=== PATIENT | male | born 1985 | race Caucasian/White ===

== ENCOUNTER 2020-04-04 15:15 | Emergency (ER) | payer OTHER, SELFPAY ==
[2020-04-04 15:22] VITALS: BP 146/98; PULSE 98; RESP 18; TEMP 37.2; O2SAT 97; BMI 29.8
--- NOTE | 2020-04-04 16:00 | ED_ITS ---
HPI - Back Pain/Injury General: Chief Complaint: Extremity Injury, Lower Stated Complaint: lower back pain Time Seen by Provider: 04/04/20 15:41 Source: patient Mode of arrival: ambulatory Limitations: no limitations History of Present Illness: HPI Narrative: Patient is a nice 35-year-old male who presents to ED today with a complaint of lower back pain. Patient tells me recently he was picking up a 6-year-old daughter when he began having left-sided back pain. Patient states he was adjusted by a chiropractor this morning who told him that most likely was his SI joint. Patient states he is not having numbness, tingling, or loss of sensation to his lower extremities. He is not experiencing urinary retention or bowel incontinence. He has not had any injury or trauma to his back. MD elicited complaint: back pain Onset (ago): hour(s) Timing: constant Severity: moderate Location: left lower back Radiation: none Exacerbating factors: movement, walking and other (bending over) Associated symptoms: Deny abdominal pain, difficulty walking, dysuria, fever(s), nausea, urinary urgency or vomiting Review of Systems Const: Denies: fever(s) or chills Card: Denies: chest pain Resp: Denies: dyspnea GI: Denies: abdominal pain, nausea or vomiting : Denies: flank pain, difficulty urinating, dysuria, urinary frequency, urinary urgency or urinary hesitancy Musc: Reports: back pain; Denies: neck pain, extremity pain, extremity swelling, joint pain or joint swelling Neuro: Denies: headache(s), numbness in extremities, weakness in extremities, sensory changes or difficulty walking Physical Exam Const: COMMON NORMALS: no acute distress, average body habitus, patient oriented x3, no limitations, healthy appearing, alert and well nourished Resp: COMMON NORMALS: normal respiratory effort and clear to auscultation bilaterally AUSCULTATION: clear to auscultation bilaterally Cardio: COMMON NORMALS: regular rate and regular rhythm RATE: regular rate RHYTHM: regular rhythm GI: COMMON NORMALS: Normal to inspection, nondistended, normoactive bowel sounds present, Soft to palpation, non-tender, No hepatosplenomegaly present and no masses PALPATION: Yes Soft to palpation and Yes No hepatosplenomegaly present : COMMON NORMALS: Yes no CVA tenderness BLADDER/KIDNEY EXAM: Yes no CVA tenderness Back/Pelvis: COMMON NORMALS: no CVA tenderness, thoracic and lumbar spine normal to inspection, no thoracic nor lumbar tenderness and thoraco-lumbar ROM normal THORACIC SPINE/UPPER BACK: Yes normal to inspection and Yes thoracic ROM normal LUMBAR SPINE/LOWER BACK: Yes normal to inspection and Yes lumbar ROM normal PELVIS: Yes buttocks normal SACROILIAC JOINTS: Yes SI joint(s) abnormal SI joint details: tender to palpation Extremity: COMMON NORMALS: normal to inspection, full ROM, no clubbing, cyanosis or edema and no calf tenderness Neuro: COMMON NORMALS: patient oriented x3, moves all extremities, no focal motor deficits, no sensory deficits noted and gait normal SENSORIUM/ORIENTATION: Yes alert Skin: COMMON NORMALS: no rashes or lesions noted GENERAL SKIN EXAM: no rashes or lesions noted Course Vital Signs: Vital signs: Vital Signs Temperature 99.0 F 04/04/20 15:22 Pulse Rate 98 04/04/20 15:22 Respiratory Rate 18 04/04/20 15:22 Blood Pressure 146/98 04/04/20 15:22 Pulse Oximetry 97 04/04/20 15:22 Discharge Plan Discharge Patient Disposition: Home Clinical Impression: Sacroiliac joint pain Condition: Stable Prescriptions: New cyclobenzaprine 10 mg tablet 10 mg PO TID Qty: 14 RF: 0 prednisone 10 mg tablet 60 mg PO DAILY 5 Days Qty: 30 RF: 0 ibuprofen 800 mg tablet 800 mg PO Q8H PRN (Reason: pain) Qty: 20 RF: 0 Discharge Orders: Discharge ED (Routine); Ordered 04/04/20 Ordered By: Suzanne Pulliam Patient Instructions: Sacroiliitis (ED), Back Pain (ED) Activity Restrictions/Additional Instructions: Please follow-up with primary care in 1 to 2 weeks for continued pain. Return to the emergency department immediately for severe back pain, fevers, not being able to urinate, loss of bowel, or any other concerns you may have. Coding Level of Care Code ED Health And Safety Director for Ky Castillo
[2020-04-04 17:02] VITALS: BP 136/82; PULSE 74; RESP 16; O2SAT 97
== END 2020-04-04 16:30 | disposition home or self-care (01) ==
PROVIDERS: Emergency Provider Physician Assistant
DX: M46.1 Sacroiliitis, not elsewhere classified (principal)
CPT/HCPCS: 12345; 99281

== ENCOUNTER 2022-09-20 16:49 | Inpatient (IN) | payer OTHER, SELFPAY ==
[2022-09-20 16:50] VITALS: BP 143/104; RESP 18; TEMP 37.4; O2SAT 98; BMI 23.6
[2022-09-20 17:08] LABS: Basophils % 0.4 %; Eosinophils # 0.1 10^3/uL (0.0-0.8); Eosinophils % 0.6 %; Hematocrit 46.7 % (42.0-52.0); Hemoglobin 15.5 g/dL (11.7-16.6); Lymphocytes # 2.8 10^3/uL (0.8-4.8); Lymphocytes % 26.8 %; Mean Corpuscular HGB Conc 33.2 g/dL (30.0-36.0); Mean Corpuscular Hemoglobin 29.9 pg (28.0-34.0); Mean Corpuscular Volume 90.2 fl (80-94); Mean Platelet Volume 10.6 fL (7.4-10.4); Monocytes # 0.7 10^3/uL (0.2-0.9); Monocytes % 7.1 %; Neutrophils # 6.75 10^3/uL (1.8-7.7); Neutrophils % 64.8 %; Nucleated Red Blood Cells % 0 %; Platelet Count 212 10^3/cmm (130-400); Red Blood Count 5.18 10^6/uL (4.1-5.3); White Blood Count 10.4 10^3/uL (4.0-10.0)
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
[2022-09-20 17:28] LABS: Acetaminophen < 5.0 ug/mL (10-30); Alanine Aminotransferase 134 U/L (0-41); Albumin Level 4.9 g/dL (3.5-5.2); Alkaline Phosphatase 66 U/L (40-130); Anion Gap 15.8 (5-19); Aspartate Amino Transferase 30 U/L (0-40); Blood Urea Nitrogen 6 mg/dL (6-20); Calcium 10.1 mg/dL (8.5-10.5); Carbon Dioxide 28 mmol/L (22-29); Chloride 100 mmol/L (98-107); Globulin 2.5 g/dL (1.3-4.6); Glomerular Filtration Rate 107.6 mL/min (90-130); Glucose 101 mg/dL (65-115); Osmolality Calculated 288 mOsm/kg (285-295); Potassium 3.8 mmol/L (3.5-5.1); Salicylate < 0.3 mg/dL (3-10); Sodium 140 mmol/L (136-145); Total Bilirubin 0.6 mg/dL (0.15-1.2); Total Protein 7.4 g/dL (6.6-8.7)
[2022-09-20 17:29] LABS: Alcohol Level < 10 mg/dL (0-10)
[2022-09-20 18:00] VITALS: BP 135/89; PULSE 67; RESP 16; TEMP 36.4; O2SAT 100
[2022-09-20 19:44] LABS: Amphetamines Screen Urine Negative (Negative); Barbiturates Screen Urine Negative (Negative); Benzodiazepines Screen Urine Negative (Negative); Cocaine Screen Urine Negative (Negative); Opiate Screen Urine Negative (Negative); PCP Screen Urine Negative (Negative); THC Screen Urine Positive (Negative)
[2022-09-20 20:35] VITALS: BP 117/78; PULSE 97; RESP 18; TEMP 36.4; O2SAT 97
[2022-09-21 06:00] VITALS: BP 124/75; PULSE 75; RESP 16; TEMP 37.2; O2SAT 98
[2022-09-21 14:00] VITALS: BP 113/72; PULSE 89; RESP 16; TEMP 36.6; O2SAT 97
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
[2022-09-21 20:44] VITALS: BP 108/73; PULSE 85; RESP 21; TEMP 37; O2SAT 97
[2022-09-22 06:00] VITALS: BP 120/77; PULSE 80; RESP 16; O2SAT 97
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
[2022-09-22 14:00] VITALS: BP 118/76; PULSE 71; RESP 16; TEMP 36.7; O2SAT 96
[2022-09-22] MEDS: paliperidone ER 3 mg Tablet PO (20:25)
[2022-09-22 20:39] VITALS: BP 108/71; PULSE 77; RESP 18; TEMP 36.4; O2SAT 99
[2022-09-23 06:00] VITALS: BP 123/64; PULSE 76; RESP 17; TEMP 37; O2SAT 96
[2022-09-23 14:00] VITALS: BP 111/74; PULSE 77; RESP 16; TEMP 36.8; O2SAT 97
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
[2022-09-23] MEDS: paliperidone ER 6 mg Tablet PO (20:07)
[2022-09-23 20:25] VITALS: BP 106/65; PULSE 81; RESP 18; TEMP 37.2; O2SAT 98
[2022-09-24 06:00] VITALS: BP 118/77; PULSE 80; RESP 17; TEMP 36.8; O2SAT 98
[2022-09-24 12:58] VITALS: BP 118/77; PULSE 80; RESP 17; TEMP 36.8; O2SAT 98
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
--- NOTE | 2022-09-24 14:23 | PC.NURSE ---
written discharge instruction discussed with patient and his , left with patient all questions answered. pt leaving in pov with spouse. medication from phramacy given to patient.
== END 2022-09-24 14:26 | disposition home or self-care (01) | DRG 880 ==
LOC: ER 17:23 → NP 17:32
PROVIDERS: Admitting Provider Psychiatry & Neurology Psychiatry; Emergency Provider Emergency Medicine; Visit Provider Psychiatry & Neurology Psychiatry
DX: F41.1 Generalized anxiety disorder (principal); R45.851 Suicidal ideations; M54.50 Low back pain, unspecified; Z63.0 Problems in relationship with spouse or partner; F43.10 Post-traumatic stress disorder, unspecified; Z87.820 Personal history of traumatic brain injury; Z81.8 Family history of other mental and behavioral disorders
CPT/HCPCS: 36415; 80053; 80306; 80307; 85025; 97150; 97165; 99238; 99285